=== PATIENT | male | born 1975 | race Two or more races ===

== ENCOUNTER 2025-02-11 11:32 | Emergency (ER) | payer MEDICAID, SELFPAY ==
[2025-02-11 12:08] VITALS: BP 122/79; PULSE 53; RESP 18; TEMP 36.6; O2SAT 95; BMI 26.9
--- NOTE | 2025-02-11 12:15 | XR_ITS ---
Examination: Testicular sonography complete TECHNIQUE: Anaya scale sonographic images testes, assessment arterial inflow and venous outflow Dr. Nika vo color flow analysis Examination type: February 11, 2025 1229 hours INDICATIONS: Bilateral testicular pain beginning 2 months ago, worse the last week FINDINGS: Right testis is 4.3 cm epididymis 2.2 cm Arterial flow to the testicle. No testicular mass Mild varicocele Mild hydrocele Left testis is 4.6 cm epididymis 3.6 cm 4 x 3 mm epididymal cyst Arterial flow to the testicle. No testicular Mass. Mild hydrocele IMPRESSION: No testicular torsion or testicular mass Left epididymitis Mild right varicocele Small benign left epididymal cyst
--- NOTE | 2025-02-11 12:17 | PD.EDRME ---
Rapid Medical Screening Exam RME Arrival date/time: 02/11/25 11:32 This is a 49-year-old male with lower abdominal pain that radiates to his testicles it has been going on for the past 2 months. Patient states that he was seen by his primary provider and was put on antibiotics. Patient does not know why he has been on antibiotics. Patient states the pain comes and goes to his testicles. Patient denies urinary symptoms. I have greeted and performed a focused initial assessment of this patient. Initial appropriate labs ordered at this time. A comprehensive ED assessment and evaluation of the patient and analysis of all test and completion of medical decision making process will be conducted by additional ED provider. Chief Complaint: Abdominal Pain Time Seen by Provider: 02/11/25 11:57 Vital signs: Vital Signs Temperature 97.9 F 02/11/25 12:08 Pulse Rate 53 L 02/11/25 12:08 Respiratory Rate 18 02/11/25 12:08 Blood Pressure 122/79 02/11/25 12:08 Pulse Oximetry (%) 95 02/11/25 12:08 Oxygen Delivery Method Room Air 02/11/25 12:08
[2025-02-11 12:44] LABS: Collection Type, Urine Voided
[2025-02-11 12:54] LABS: Bilirubin,Urine Negative (Negative); Blood,Urine Negative (Negative); Clarity,Urine Clear (Clear/Hazy); Color,Urine Yellow (Lt Yel-Yel); Culture Indicated,Urine Not Indicated; Glucose, Urine Negative (Negative); Ketones,Urine Negative (Negative); Leukocyte Esterase,Urine Negative (Negative); Nitrite,Urine Negative (Negative); PH,Urine 6.5 (5.0-7.0); Protein,Urine Negative (Neg - Trace); RBC,Urine 6 /hpf (0-3); Specific Gravity,Urine 1.033 (1.001-1.035); Squamous Epithelial Cell,Urine 2 /hpf (0-5); Urobilinogen,Urine Negative mg/dL (0.0-1.0); WBC,Urine 2 /hpf (0-5)
[2025-02-11 13:02] LABS: Basophils % (Auto) 1 % (0-2.5); Eosinophils % (Auto) 1 % (0-10); Hematocrit 39.6 % (41.0-53.0); Hemoglobin 13.9 g/dL (13.5-16.0); Immature Granulocytes % (Auto) 0 % (0-0); Immature Granulocytes Auto 0.02 Thou/mm3 (0.00-0.00); Lymphocytes # (Auto) 2.1 Thou/mm3 (1.0-4.8); Lymphocytes % (Auto) 34 % (10-50); Mean Corpuscular HGB Conc 35.1 g/dl (31.0-37.0); Mean Corpuscular Hemoglobin 30.8 pg (25.0-35.0); Mean Corpuscular Volume 88 fL (80-100); Monocytes # (Auto) 0.5 Thou/mm3 (0.0-0.8); Monocytes % (Auto) 9 % (0-12); Neutrophils # (Auto) 3.3 Thou/mm3 (1.8-7.7); Neutrophils % (Auto) 55 % (37-80); Nucleated Red Blood Cell % 0 /100 WBC (0); Platelet Count 201 Thou/mm3 (140-440); RDW Standard Deviation 40.5 fL (35.1-43.9); Red Blood Count 4.52 Miln/mm3 (4.50-5.90)
[2025-02-11 13:17] LABS: Alanine Aminotransferase 24 U/L (10-49); Albumin, Serum 4.5 gm/dL (3.5-5.0); Albumin/Globulin Ratio 1.9 (1.2-2.2); Alkaline Phosphatase 75 U/L (46-116); Anion Gap 9 (7-16); Aspartate Amino Transferase 22 U/L (0-34); BUN/Creatinine Ratio 29 Ratio (12-20); Bilirubin,Total 0.5 mg/dL (0.3-1.2); Blood Urea Nitrogen 23 mg/dL (9-23); Calcium 8.8 mg/dL (8.3-10.6); Calcium (Corrected) 8.8 mg/dL (8.5-10.1); Chloride 108 mMol/L (98-107); Creatinine (Component) 0.8 mg/dL (0.6-1.3); Estimated Creatinine Clearance 99.7 mL/min (>60); Globulin 2.4 gm/dL (2.3-3.5); Glucose 103 mg/dL (74-106); Lipase 45 U/L (12-53); Osmolality,Calculated 290 (275-295); Sodium 144 mMol/L (136-145); Total Protein 6.9 gm/dL (5.7-8.2); eGFR > 60 See Note
[2025-02-11 14:29] VITALS: BP 126/73; PULSE 56; RESP 18; TEMP 36.9; O2SAT 99
--- NOTE | 2025-02-11 14:54 | EDNOTE_ITS ---
ED General RME/HPI General Chief complaint: Abdominal Pain Stated complaint: LOWER ABD PAIN X1 WEEK Time Seen by Provider: 02/11/25 11:57 Arrival date/time: 02/11/25 11:32 RME / HPI RME / HPI narrative: 49-year-old male with lower abdominal pain that radiates to his testicles it has been going on for the past 2 months. Patient states that he was seen by his primary provider and was put on antibiotics. Patient does not know why he has been on antibiotics. Patient states the pain comes and goes to his testicles. Patient denies urinary symptoms. Denies any fever denies any other complaints. Related Data Home Medications ?Medication ?Instructions ?Recorded ?Confirmed ibuprofen 800 mg tablet 800 mg PO QDAY PRN Pain 05/0104/17/21 Previous Rx's ?Medication ?Instructions ?Recorded prednisone 5 mg tablet See Taper PO QDAY #20 tabs 0 04/21/21 doxycycline hyclate 100 mg capsule 100 mg PO BID #28 c aps 02/11/25 Allergies Allergy/AdvReac Type Severity Reaction Status Date / Time No Known Allergies Allergy Verified 04/19/21 16:41 Review of Systems Review of Systems Narrative Review of Systems: Review of system reviewed and within normal limits except mentioned in HPI ED Exam Narrative Physical exam: VITAL SIGNS: Reviewed. GENERAL APPEARANCE: Alert and interactive, follows commands, no acute distress, HEAD AND FACE: Non-traumatic. ENT: PERRL, pink conjunctivitis, eyelid no trauma, Mucous membrane moist. NECK: Supple, nontender, no nuchal rigidity. CHEST: No tenderness, no crepitus, no paradoxical movement, no retractions. LUNGS: Clear, well ventilated, symmetric, no rales, no wheezing, no ronchi, no stridor, good breath sounds bilaterally. HEART: Regular rate, regular rhythm, no murmur, no gallops. ABDOMEN: Soft, positive bowel sounds, nondistended, no guarding, nontender, no rebound, no masses, RECTAL: Deferred. GENITAL: Genital exam was done by me with consent from him and his , to go ahead even without other medical personnel,, patient left testicle is slightly tender no redness no swelling noted however looks undescended. NEUROLOGICAL: Gross motor function intact sensory function intact, Appropriate for age. MUSCULOSKELETAL: low back nontender, full range of motion. EXTREMITIES: Nontender, full range of motion. SKIN: Color pink, dry, no rash, no lacerations, no abrasions, no contusions. LYMPHATICS: Deferred. Course Quality Measures none Orders Category Date Time Status US testicular Stat Exams 02/11/25 12:15 Completed CBC Stat Lab 02/11/25 12:48 Completed Comprehensive Metabolic Panel Stat Lab 02/11/25 12:48 Completed Lipase Stat Lab 02/11/25 12:48 Completed Urinalysis, C/S if Indicated Stat Lab 02/11/25 12:37 Completed Vital Signs Vital signs: Vital Signs Temperature 97.9 F 02/11/25 12:08 Pulse Rate 53 L 02/11/25 12:08 Respiratory Rate 18 02/11/25 12:08 Blood Pressure 122/79 02/11/25 12:08 Pulse Oximetry (%) 95 02/11/25 12:08 Oxygen Delivery Method Room Air 02/11/25 12:08 Discharge Plan Plan Patient Disposition: HOME (Self Care) Discharge Disposition comment: Stable Prescriptions/Referrals Prescriptions/Med Rec: New doxycycline hyclate 100 mg capsule 100 mg PO BID Qty: 28 0RF No Action ibuprofen 800 mg Tablet 800 mg PO QDAY PRN (Reason: Pain) prednisone 5 mg tablet See Taper PO QDAY Qty: 20 0RF Taper: Prednisone Taper 20 mg DAILY for 2 Days and 0 Hour 10 mg DAILY for 2 Days and 0 Hour 5 mg DAILY for 7 Days and 0 Hour Referrals: Daniel Courtney MD [Primary Care Provider] - In 1 week Problem List Clinical Impression: Acute epididymitis Patient/Caregiver Discharge Instructions Discharge Activity: activity as tolerated Education Materials: ED Epididymitis Additional Instructions: Thank you for the opportunity for serving you today. You are stable for discharged . You are advised to: Follow-up with your PCP in 1 to 2 days and asked for referral to urologist Return to ED for worsening of symptoms Increase oral fluids Take medication as prescribed Print Language: Yakut Stand Alone Forms: [employer]era Award Info., Patient Portal Info Letter PA/[employer] Supervising Physician MAGAN/[employer] Supervising Physician: MD Hank MDM Narrative MDM hospital course (for use when minimal MDM required): 49-year-old male with lower abdominal pain that radiates to his testicles it has been going on for the past 2 months. Patient states that he was seen by his primary provider and was put on antibiotics. Patient does not know why he has been on antibiotics. Patient states the pain comes and goes to his testicles. Patient denies urinary symptoms. Denies any fever denies any other complaints. Laboratory workup all came back unremarkable including normal troponin no leukocytosis however ultrasound of the testicles showed No testicular torsion or testicular mass Left epididymitis Mild right varicocele Small benign left epididymal cyst Patient will be sent home on doxycycline for 2 weeks advised him to follow-up with urologist outpatient. Medical Records reviewed Medical Records additional comments: None Meds/Rx considered, not ordered describe: None Labs/Rad/Tests considered, not ordered Describe: None Chronic Illness/Social Conditions Explain: None Labs Lab(s) Interpretation(s): See results MDM Imaging Imaging Interpretation(s): See results MDM Diagnosis Differential Diagnosis ED Complaint MDM: Testicular torsion epididymitis, UTI Diagnoses ruled out and/or further discussions: epididymitis
== END 2025-02-11 15:03 | disposition home or self-care (01) ==
PROVIDERS: Nurse Practitioner Family; Emergency Provider Emergency Medicine; PCP Family Medicine
DX: N45.1 Epididymitis (principal); I86.1 Scrotal varices; N50.3 Cyst of epididymis
CPT/HCPCS: 36415; 76870; 80053; 81001; 83690; 85025; 99284